=== PATIENT | male | born 1935 | race Caucasian/White ===

== ENCOUNTER 2024-05-16 09:29 | Emergency (ER) | payer OTHER, MEDICARE, SELFPAY ==
--- NOTE | ~2024-05-16 | CT_ITS ---
EXAMINATION: CT HEAD WITHOUT CONTRAST CLINICAL INFORMATION: fall, right frontal HS, no thinners COMPARISON: None available. TECHNIQUE: Contiguous axial imaging was performed from the skull base to vertex without intravenous administration of contrast. This CT examination was performed using dose optimization techniques as appropriate, variously including the following: *Automated exposure control *Adjustment of mA and/or kV according to patient size (this includes techniques or standardized protocols for targeted exams where dose is matched to indication/reason for exam; i.e. extremities or head) *Use of iterative reconstruction technique DLP: 883 mGy-cm FINDINGS: No acute intracranial hemorrhage, mass effect, midline shift, hydrocephalus or herniation. Ahn-white matter differentiation is normal. Posterior cranial fossa contents demonstrated no acute intracranial hemorrhage or mass effect. Bilateral multifocal patchy and confluent deep periventricular white matter hypodensities involving centrum semiovale, connor radiata, marbin. 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 Calcified plaques in the cavernous supraclinoid segments both ICA and V4 segments of the vertebral arteries. Bony calvarium is intact. Skull base is intact. Tympanic cavities and mastoid cells are aerated. No air-fluid levels in the included paranasal sinuses. No gross soft tissue scalp hematoma. CT/CT head/brain wo IV con IMPRESSION: No acute fracture, bony calvarium. No acute intracranial hemorrhage. Small vessel occlusive disease. Superimposed acute stroke/nonhemorrhagic ischemia cannot be excluded. Electronically signed by: Efrain Franco MD 05/16/2024 11:24 AM [facility]
--- NOTE | ~2024-05-16 | CT_ITS ---
EXAMINATION: CT CERVICAL SPINE WITHOUT CONTRAST CLINICAL INFORMATION: Status post fall. COMPARISON: None available. TECHNIQUE: Contiguous axial images from the skull base to the thoracic inlet through the cervical spine using 3 mm collimation with bone and soft tissue algorithm. Sagittal and coronal reformatted images acquired. This CT examination was performed using dose optimization techniques as appropriate, variously including the following: *Automated exposure control *Adjustment of mA and/or kV according to patient size (this includes techniques or standardized protocols for targeted exams where dose is matched to indication/reason for exam; i.e. extremities or head) *Use of iterative reconstruction technique DLP: 503 mGy-cm FINDINGS: Craniocervical junction is intact. Multilevel marginal osteophyte formation, endplate sclerosis, subchondral cyst formation and decreased intervertebral disc height more conspicuous at C6-7 and to a lesser extent C4-5 and C5-6 levels. Grade 1 anterolisthesis, C3-4 and C7-T1 likely degenerative. C1 is intact. C2 is intact. C3 is intact. C4 is intact. C5 is intact. C6 is intact. C7 is intact. Bilateral facet joint hypertrophy more conspicuous at C6-7 and to a lesser extent C4-5 and C3-4 levels. Tympanic cavities and mastoid cells are aerated. Punctate desiccation seen in the palatine tonsils. There is a tracheal deviation without gross focal mass. CT/CT cervical spine wo IV con IMPRESSION: Multilevel cervical spondylosis C3 C7 more conspicuous at C6-7 and C5-6 without acute fracture or trauma-related listhesis. Fleischner guidelines were followed. Electronically signed by: Efrain Franco MD 05/16/2024 11:[address] [facility]
--- NOTE | ~2024-05-16 | CT_ITS ---
EXAMINATION: CT CHEST WITHOUT CONTRAST CLINICAL INFORMATION: Status post fall. Right-sided rib pain COMPARISON: None available. TECHNIQUE: Multidetector volumetric CT imaging of the chest was done. Axial MIP volume rendering provided. Sagittal and coronal reformatted images were obtained. This CT examination was performed using dose optimization techniques as appropriate, variously including the following: *Automated exposure control *Adjustment of mA and/or kV according to patient size (this includes techniques or standardized protocols for targeted exams where dose is matched to indication/reason for exam; i.e. extremities or head) *Use of iterative reconstruction technique DLP: 345 mGy-cm FINDINGS: Limited evaluation of the vascular structures and soft tissues due to lack of IV contrast. There is an acute cortical disruption in the anterior lateral aspect of the right fifth rib. The clavicles are intact. The scapulae are intact. No acute cortical disruption or gross malalignment in the axial skeleton. Multilevel cervical thoracic spondylosis more conspicuous at C6-7 and T10-11. Sternum is intact. Metallic prosthesis causing beam hardening artifact, left humerus/glenohumeral joint. Radiopaque anchors in the greater tuberosity right humerus. No pneumothorax. No pneumomediastinum. No hemothorax. No hemomediastinum. No lung contusions. Atelectasis in the periphery of the lung bases. 4 mm groundglass pulmonary nodule in the periphery of the right middle lobe and likely lingula. Hiatal hernia, moderate to large size. Tortuosity of the trachea secondary to the brachiocephalic trunk. Respiratory airways patent. No pericardial effusion. No hemopericardium. Calcified plaques, thoracic aorta its main branches and the coronary arteries. No aneurysm, thoracic aorta. CT/CT chest wo IV con IMPRESSION: Acute displaced fracture, right fifth rib. No pneumothorax. Hiatal hernia, large size. Atherosclerosis disease and coronary artery disease. Nonspecific 4 mm groundglass pulmonary nodules, right middle lobe and lingula. Fleischner guidelines were followed. Electronically signed by: Efrain Franco MD 05/16/2024 11:42 AM [facility]
[2024-05-16 10:02] VITALS: BP 184/96; BP 189/94; PULSE 64; PULSE 69; RESP 18; TEMP 36.4; O2SAT 96; O2SAT 97; BMI 23.7
--- NOTE | 2024-05-16 10:27 | ED.FALL ---
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 Reports tripping over his shoe while walking on the sidewalk causing him to fall forward and strike the right side of his forehead on the cement. No LOC. Not on anticoagulation. He denies neck pain however was placed in a cervical collar by EMS for precaution. He states that he was holding a coffee tumbler in his right hand during the fall. Admits to landing on the tumbler with the right side of his chest with subsequent right anterior rib pain. 4-5/10 pain at present. Denies sob or difficulty breathing. He was not administered anything for pain en route to ED. Also reports abrasions to his hands sustained during the fall. He did not fall on his out stretched hands. Denies hand or wrist pain. Denies headache, dizziness, vision changes, neck or back pain, numbness/tingling/weakness to extremities. Related Data Previous Rx's ?Medication ?Instructions ?Recorded tramadol 50 mg tablet 50 mg PO Q8H PRN pain (scale score 05/16/24 7-10) 3 days #12 tabs Allergies Allergy/AdvReac Type Severity Reaction Status Date / Time No Known Allergies Allergy Verified 05/16/24 10:06 Review of Systems Review of Systems: Constitutional: No fever, chills, fatigue, night sweats, weight changes ENT/Mouth: No ear pain, hearing loss, nasal congestion, sinus pain, rhinorrhea, sore throat Eyes: No eye pain, swelling, redness, vision changes, discharge Cardio: No chest pain, palpitations, ESPITIA, orthopnea, peripheral edema Pulm: No SOB, cough, sputum, wheezing, dyspnea, hemoptysis GI: No nausea, vomiting, hematemesis, abdominal pain, diarrhea, constipation, hematochezia, melena : No irregular bleeding, dysuria, frequency, urgency, hesitancy, hematuria, flank pain, urinary flow changes, urinary incontinence or retention MSK: No back pain, neck pain, joint pain, myalgias, +right rib pain Skin: No lesions, rashes Neuro: No weakness, numbness, paresthesias, LOC, dizziness, headache Psych: No anxiety/panic, depression, SI/HI, AH/VH All other systems reviewed and are negative. [facility] Past Medical History Attestation statement: The following information was validated with the patient. Source: old records reviewed and nursing notes reviewed Physical Exam Vital Signs: Vital Signs: Last Vital Signs Temp 97.4 F 05/16/24 14:07 Pulse 64 05/16/24 14:07 Resp 17 05/16/24 14:07 BP 179/91 H 05/16/24 14:07 Pulse Ox 99 05/16/24 14:07 O2 Del Method Room Air 05/16/24 14:07 BMI result Body Mass Index 23.7 hypertensive, vitals otherwise wnl. General: Well appearing, in no acute distress. Skin: Warm, dry, intact. No rashes or lesions. Head: +small hematoma to right forehead with overlying abrasion. no laceration or active bleeding. no palpable skull fracture. EENT: Hearing is intact b/l. Conjunctiva clear. PERRLA. EOM intact without entrapment. Moist mucous membranes.? Neck: initially in cervical collar. on removal, no midline c spine tenderness or step off. FROM intact. Cardiac: Chest wall symmetric. RRR reproducible tenderness to right anterior chest wall without palpable deformity, crepitus. Symmetric rise and fall of chest. No paradoxical movements. Lungs: Normal respiratory effort without accessory muscle use. CTA bilaterally. Abdomen: Soft, non-tender, non-distended. No rebound tenderness or guarding. Positive BS x4. Back: No midline spinous or paraspinal tenderness. No step off deformity. Ext: +small abrasions noted to PIPs of b/l hands. FROM intact to all DIP/PIP/MCP digits. FROM intact to b/l wrists. 2+ radial and ulnar pulses intact. Neuro: AOx3. Normal speech. No focal neuro deficits. Strength 5/5 intact throughout. Ambulating with steady gait. Psych: Appropriate mood and affect. Responds appropriately to questions. Course Course Course Narrative: 1230 -- CT head does not demonstrate intracranial bleed or skull fracture. Incidental finding of small vessel occlusive disease question superimposed acute stroke/nonhemorrhagic ischemia can not be excluded. I reviewed imaging with my attending physician Dr. Hope. Patient has no focal neuro deficits. We do not have concern for acute CVA at this time. CT cervical spine without acute fracture or sublxation. CT chest shows a single fracture of the anterior lateral aspect of the right fifth rib, consistent with point tenderness. There is no evidence of pneumothorax. He is satting 99% on RA. > patient was informed of all workup results. He was medicated with Tylenol in the ED for 4/10 rib pain. His abrasions were cleaned and banadage. No lacerations requiring repair. > advised to continue Tylenol and ibuprofen at home for pain control. Will send tramadol for breakthrough pain. Advised to apply ice to scalp hematoma. He was educated on incentive spirometer use. advised to follow up with his PCP this week. Patient has remained stable throughout ED visit today. Discussed worrisome signs and symptoms and when to return to the ED. All questions answered at this time. Patient is agreeable with disposition and stable for discharge. 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 patient hypertensive on arrival, vitals otherwise WNL. Not hypoxic. He is nontoxic appearing in no acute distress. He presents in cervical collar, lying comfortably on the exam bed. His exam is completely nonfocal. PERRLA. eom's intact without entrapment. There is a small hematoma noted to right forehead with overlying abrasion. No open laceration or active bleeding. No palpable skull fracture. No hood sign. No raccoon eyes. EOMs intact without entrapment. no midline c spine tenderness or step off. there is reproducible tenderness to right anterior chest wall without palpable deformity, crepitus. Symmetric rise and fall of chest. No paradoxical movements. Differential diagnosis includes scalp hematoma, concussion, intra cranial bleed. Lower suspicion for skull fracture. Concern for rib contusion vs fracture, pneumothorax. unlikely hemothorax Plan for imaging, pain control, and re-evaluation. Differential Diagnosis Differential Diagnoses: The differential diagnosis associated with the presentation includes As above Admission/Observation Consideration of admission/observation: Escalation of care including admission/observation considered Admission considered on presentation Independent Interpretation I performed an independent interpretation of an: CT Scan Interpretation: CT head/brain without intracranial bleed or skull fracture CT cervical spine without fracture or subluxation CT chest with fracture of right 5th rib Radiology Impression Discussion of test interpretation with radiology: I have reviewed the radiologist's reading. Radiologist Impression: EXAMINATION: CT HEAD WITHOUT CONTRAST CLINICAL INFORMATION: fall, right frontal HS, no thinners COMPARISON: None available. TECHNIQUE: Contiguous axial imaging was performed from the skull base to vertex without intravenous administration of contrast. This CT examination was performed using dose optimization techniques as appropriate, variously including the following: *Automated exposure control *Adjustment of mA and/or kV according to patient size (this includes techniques or standardized protocols for targeted exams where dose is matched to indication/reason for exam; i.e. extremities or head) *Use of iterative reconstruction technique DLP: 883 mGy-cm FINDINGS: No acute intracranial hemorrhage, mass effect, midline shift, hydrocephalus or herniation. Ahn-white matter differentiation is normal. Posterior cranial fossa contents demonstrated no acute intracranial hemorrhage or mass effect. Bilateral multifocal patchy and confluent deep periventricular white matter hypodensities involving centrum semiovale, connor radiata, marbin. 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 Calcified plaques in the cavernous supraclinoid segments both ICA and V4 segments of the vertebral arteries. Bony calvarium is intact. Skull base is intact. Tympanic cavities and mastoid cells are aerated. No air-fluid levels in the included paranasal sinuses. No gross soft tissue scalp hematoma. CT/CT head/brain wo IV con IMPRESSION: No acute fracture, bony calvarium. No acute intracranial hemorrhage. Small vessel occlusive disease. Superimposed acute stroke/nonhemorrhagic ischemia cannot be excluded. Electronically signed by: Efrain Franco MD 05/16/2024 11:24 AM [facility] EXAMINATION: CT CERVICAL SPINE WITHOUT CONTRAST CLINICAL INFORMATION: Status post fall. COMPARISON: None available. TECHNIQUE: Contiguous axial images from the skull base to the thoracic inlet through the cervical spine using 3 mm collimation with bone and soft tissue algorithm. Sagittal and coronal reformatted images acquired. This CT examination was performed using dose optimization techniques as appropriate, variously including the following: *Automated exposure control *Adjustment of mA and/or kV according to patient size (this includes techniques or standardized protocols for targeted exams where dose is matched to indication/reason for exam; i.e. extremities or head) *Use of iterative reconstruction technique DLP: 503 mGy-cm FINDINGS: Craniocervical junction is intact. Multilevel marginal osteophyte formation, endplate sclerosis, subchondral cyst formation and decreased intervertebral disc height more conspicuous at C6-7 and to a lesser extent C4-5 and C5-6 levels. Grade 1 anterolisthesis, C3-4 and C7-T1 likely degenerative. C1 is intact. C2 is intact. C3 is intact. C4 is intact. C5 is intact. C6 is intact. C7 is intact. Bilateral facet joint hypertrophy more conspicuous at C6-7 and to a lesser extent C4-5 and C3-4 levels. Tympanic cavities and mastoid cells are aerated. Punctate desiccation seen in the palatine tonsils. There is a tracheal deviation without gross focal mass. CT/CT cervical spine wo IV con IMPRESSION: Multilevel cervical spondylosis C3 C7 more conspicuous at C6-7 and C5-6 without acute fracture or trauma-related listhesis. Fleischner guidelines were followed. Electronically signed by: Efrain Franco MD 05/16/2024 11:30 AM [facility] EXAMINATION: CT CHEST WITHOUT CONTRAST CLINICAL INFORMATION: Status post fall. Right-sided rib pain COMPARISON: None available. TECHNIQUE: Multidetector volumetric CT imaging of the chest was done. Axial MIP volume rendering provided. Sagittal and coronal reformatted images were obtained. This CT examination was performed using dose optimization techniques as appropriate, variously including the following: *Automated exposure control *Adjustment of mA and/or kV according to patient size (this includes techniques or standardized protocols for targeted exams where dose is matched to indication/reason for exam; i.e. extremities or head) *Use of iterative reconstruction technique DLP: 345 mGy-cm FINDINGS: Limited evaluation of the vascular structures and soft tissues due to lack of IV contrast. There is an acute cortical disruption in the anterior lateral aspect of the right fifth rib. The clavicles are intact. The scapulae are intact. No acute cortical disruption or gross malalignment in the axial skeleton. Multilevel cervical thoracic spondylosis more conspicuous at C6-7 and T10-11. Sternum is intact. Metallic prosthesis causing beam hardening artifact, left humerus/glenohumeral joint. Radiopaque anchors in the greater tuberosity right humerus. No pneumothorax. No pneumomediastinum. No hemothorax. No hemomediastinum. No lung contusions. Atelectasis in the periphery of the lung bases. 4 mm groundglass pulmonary nodule in the periphery of the right middle lobe and likely lingula. Hiatal hernia, moderate to large size. Tortuosity of the trachea secondary to the brachiocephalic trunk. Respiratory airways patent. No pericardial effusion. No hemopericardium. Calcified plaques, thoracic aorta its main branches and the coronary arteries. No aneurysm, thoracic aorta. CT/CT chest wo IV con IMPRESSION: Acute displaced fracture, right fifth rib. No pneumothorax. Hiatal hernia, large size. Atherosclerosis disease and coronary artery disease. Nonspecific 4 mm groundglass pulmonary nodules, right middle lobe and lingula. Fleischner guidelines were followed. Electronically signed by: Efrain Franco MD 05/16/2024 11:42 AM [facility] Independent Historian Clinical information obtained from an independent historian. History obtained from or confirmed by: EMS External Record Review External record reviewed: Inpatient record Prescription Management I considered prescription management with: Pain Medication (tramadol) Social Determinants Patient?s care significantly limited by Social Determinants of Health including: Other Social Determinant of Health Critical Care Time Critical Care Time Critical Care Time: No Discharge Plan Discharge Clinical Impression: Fall (on)(from) sidewalk curb, initial encounter, Hematoma of frontal scalp Right rib fracture Qualifiers: Encounter type: initial encounter Rib fracture type: single rib Fracture type: closed Qualified Code(s): S22.31XA - Fracture of one rib, right side, initial encounter for closed fracture Patient Disposition: Home, Self-Care Instructions: How to Use an Incentive Spirometer (ED), Rib Fracture (ED), Fall Prevention for Older Adults (ED), Hematoma (ED) Additional Instructions: You were evaluated in the ED today following a trip and fall. The CT scan of your head does not show a fracture or bleed. You do have a small hematoma to your right forehead. Apply ice to this as needed. The CT scan of your neck does not demonstrate fracture. The CT scan of your ribs shows a nondisplaced fracture of your right 5th rib, consistent with where your discomfort is. There is no evidence of punctured lung. As discussed, management for this is pain control. I recommend you take 600mg ibuprofen every 6 hours or Tylenol 650mg every 6 hours as needed for pain. If needed, you can alternate these medications so that you take one medication every 3 hours. For example, at noon take ibuprofen, then at 3pm take Tylenol, then at 6pm take ibuprofen. Tramadol is a pain medication that has been sent to your pharmacy for you to take as needed for break through pain. There is also an incidental finding of a 4 mm nodule in your right lung. Please follow-up with your primary care provider regarding this finding as this should be monitored. I have also provided you with an incentive spirometer. You were shown how to use this in the emergency department today. See the attached paperwork on how to utilize this at home. Please follow up with your primary care provider this week. Return with new or worsening symptoms. In the case of an emergency call 911. Prescriptions: New tramadol 50 mg tablet 50 mg PO Q8H PRN (Reason: pain (scale score 7-10)) 3 Days Qty: 12 0RF Referrals: Dylan Mazariegos MD [Primary Care Provider] - 3 days (rib fracture) Interventions: ED Discharge Assessment Last Done: 05/16/24 14:07 Discharge Date/Time: 05/16/24 14:07 Print Language: German
[2024-05-16 12:11] VITALS: BP 179/91; PULSE 64; RESP 17; TEMP 36.3; O2SAT 99
[2024-05-16] MEDS: Acetaminophen 325 MG TABLET 975 MG PO (12:12)
[2024-05-16 14:07] VITALS: BP 179/91; PULSE 64; RESP 17; TEMP 36.3; O2SAT 99
== END 2024-05-16 14:07 | disposition home or self-care (01) ==
PROVIDERS: Emergency Provider Emergency Medicine; PCP Internal Medicine
DX: S22.31XA Fracture of one rib, right side, initial encounter for closed fracture (principal); S00.03XA Contusion of scalp, initial encounter; X58.XXXA Exposure to other specified factors, initial encounter; Y93.9 Activity, unspecified; Y92.480 Sidewalk as the place of occurrence of the external cause; Y99.9 Unspecified external cause status
CPT/HCPCS: 70450; 71250; 72125; 94010; 99283; 99284

== ENCOUNTER → 2024-05-16 10:31 | Outpatient (BNV) | payer MEDICARE, SELFPAY | PROVIDERS: Emergency Provider Emergency Medicine; PCP Internal Medicine; Visit Provider Radiology Diagnostic Radiology | DX: R07.81 Pleurodynia (principal); Z04.89 Encounter for examination and observation for other specified reasons | CPT/HCPCS: 70450; 71250; 72125 ==